=== PATIENT | female | born 1940 ===

== ENCOUNTER 2021-08-08 14:54 | Inpatient (IN) ==
[2021-08-08] MEDS ORDERED: SODIUM CHLORIDE 0.9% 500 ML IV STA (15:36)
[2021-08-08] MEDS ORDERED: AZITHROMYCIN 250 MG TABLET PO STA (16:02)
[2021-08-08] MEDS ORDERED: cefTRIAXone 1,000 MG in SODIUM CHLORIDE 0.9% 100 ML IV STA (16:02)
[2021-08-08 16:07] LABS: Basophils # 0.1 10*3/uL (0.0-0.2); Basophils % 0.3 % (0.0-0.8); Eosinophils # 0.2 10*3/uL (0.0-0.87); Eosinophils % 1.4 % (0.00-10.9); Hematocrit 42.8 VOL% (35.7-47.0); Hemoglobin 13.8 GM/DL (12.0-16.0); Immature Granulocytes % 0.5 %; Immature Granulocytes Absolute 0.09 #; Lymphocytes # 1.9 10*3/uL (1.4-4.0); Lymphocytes % 10.6 % (21.3-54.2); Mean Corpuscular HGB Conc 32.2 GM/DL (32-36); Mean Corpuscular Volume 93.4 FL (87-102); Mean Platelet Volume 11.5 FL (9.6-12.0); Monocytes % 5.1 % (1.7-12.7); Neutrophils % 82.1 % (38.7-73.9); Platelet Count 215 T/CUMM (130-400); Red Blood Count 4.58 MC/CUMM (3.8-5.5); Red Cell Distribution Width 12.5 % (9.3-17.3); White Blood Count 17.7 T/CUMM (4-12)
[2021-08-08 16:22] LABS: Alanine Aminotransferase 14 U/L (13-56); Albumin 3.6 G/DL (3.4-5.0); Alkaline Phosphatase 109 U/L (45-117); Aspartate Amino Transferase 17 U/L (0-37); Blood Urea Nitrogen 14 MG/DL (7-18); Carbon Dioxide 26 MMOL/L (21-32); Estimated Glom Filtration Rate 56 ML/MIN; Glucose 135 MG/DL (74-106); Osmolality,Calculated 277.7 MOS/KG (273-304); Potassium 2.9 MMOL/L (3.5-5.1); Sodium 138 MMOL/L (136-145); Total Protein 6.8 G/DL (6.4-8.2)
[2021-08-08] MEDS ORDERED: POTASSIUM CHLORIDE 20 MEQ TABLET PO STA (16:26)
[2021-08-08] MEDS ORDERED: SODIUM CHLORIDE 0.9% 1,850 ML IV ONE (16:38)
[2021-08-08] MEDS ORDERED: DOCUSATE SODIUM 100 MG CAPSULE PO PRN (17:04)
[2021-08-08] MEDS ORDERED: GLUCAGON 1 MG VIAL IM PRN (17:04)
[2021-08-08] MEDS ORDERED: ACETAMINOPHEN 325 MG TABLET PO PRN (17:04)
[2021-08-08] MEDS ORDERED: DEXTROSE 50% 25 GM/50 ML VIAL IV PRN (17:04)
[2021-08-08] MEDS ORDERED: ONDANSETRON 4 MG/2 ML VIAL IV PRN (17:04)
[2021-08-08 17:11] LABS: Bilirubin,Urine Negative (Negative); Blood, Urine Negative (Negative); Glucose,Urine (UA) Negative (Negative); Hyaline Casts,Urine 1 /LPF (0-3); Ketones,Urine 20 mg/dL (Negative); Mucus,Urine Occasional /LPF (Occasional); Nitrite,Urine Negative (Negative); Protein,Urine Negative; RBC,Urine <1 /HPF (0-4); Urine Appearance CLEAR (Clear); Urine Color Yellow (Yellow); Urine Specific Gravity 1.011 (1.001-1.035); Urine Urobilinogen < 2.0 EU/DL (0.2-1.0)
[2021-08-08] MEDS ORDERED: NICOTINE 7 MG/24 HR PATCH TRANSDERM PRN (17:32)
[2021-08-08] MEDS: ENOXAPARIN 40 MG/0.4 ML SYRINGE SUBCUT SCH (18:18)
[2021-08-08] MEDS: SODIUM CHLORIDE 0.9% 1,000 ML IV SCH (18:18)
[2021-08-08] MEDS ORDERED: INFLUENZA VIRUS VACCINE 0.5 ML SYRINGE IM ONE (18:22)
[2021-08-08] MEDS: ALBUTEROL/IPRATROPIUM 3 ML NEB RESP TX SCH (20:13)
[2021-08-08 20:16] LABS: Bilirubin,Total 0.7 MG/DL (0.20-1.00); Calcium 9.7 MG/DL (8.5-10.1); Osmolality,Calculated 280.3 MOS/KG (273-304); Potassium 2.7 MMOL/L (3.5-5.1); Total Protein 5.5 G/DL (6.4-8.2)
[2021-08-08] MEDS: INSULIN LISPRO 100 UNIT/ML SUBCUT SCH (23:33)
[2021-08-09] MEDS: ALBUTEROL/IPRATROPIUM 3 ML NEB RESP TX SCH ×4 (00:44→20:36)
[2021-08-09 06:40] LABS: Basophils % 0.3 % (0.0-0.8); Immature Granulocytes % 0.3 %; Immature Granulocytes Absolute 0.03 #
[2021-08-09 06:45] LABS: Eosinophils # 0.4 10*3/uL (0.0-0.87); Eosinophils % 3.4 % (0.00-10.9); Hematocrit 35.3 VOL% (35.7-47.0); Lymphocytes # 1.3 10*3/uL (1.4-4.0); Lymphocytes % 12.6 % (21.3-54.2); Mean Corpuscular HGB Conc 32.6 GM/DL (32-36); Mean Corpuscular Volume 93.1 FL (87-102); Mean Platelet Volume 11.8 FL (9.6-12.0); Monocytes % 8.3 % (1.7-12.7); Neutrophils % 75.1 % (38.7-73.9); Platelet Count 179 T/CUMM (130-400); Red Blood Count 3.79 MC/CUMM (3.8-5.5); Red Cell Distribution Width 12.8 % (9.3-17.3)
[2021-08-09 06:48] LABS: Calcium 9.9 MG/DL (8.5-10.1); Hemoglobin 11.5 GM/DL (12.0-16.0); Osmolality,Calculated 281.1 MOS/KG (273-304); Potassium 2.9 MMOL/L (3.5-5.1); White Blood Count 10.2 T/CUMM (4-12)
[2021-08-09 06:59] LABS: Risk Ratio 1.68; Thyroid Stimulating Hormone 0.47 uIU/ml (0.358-3.74); VLDL Cholesterol 13.4 MG/DL
[2021-08-09] MEDS: SODIUM CHLORIDE 0.9% 1,000 ML IV SCH ×2 (07:26→08:51)
[2021-08-09] MEDS: INSULIN LISPRO 100 UNIT/ML SUBCUT SCH ×4 (08:27→20:13)
[2021-08-09] MEDS: PANTOPRAZOLE 40 MG TABLET PO SCH (08:48)
[2021-08-09] MEDS: POTASSIUM CHLORIDE 20 MEQ TABLET PO PRN ×4 (08:48→14:48)
[2021-08-09] MEDS: AZITHROMYCIN INJ 500 MG in SODIUM CHLORIDE 0.9% 250 ML IV SCH (08:50)
[2021-08-09] MEDS ORDERED: MAGNESIUM SULF RIDER 2 GM/50 ML PREMIX IV ONE (11:00)
[2021-08-09] MEDS ORDERED: cefTRIAXone 1,000 MG in SODIUM CHLORIDE 0.9% 100 ML IV SCH (17:00)
[2021-08-09] MEDS: ENOXAPARIN 40 MG/0.4 ML SYRINGE SUBCUT SCH (20:13)
[2021-08-10] MEDS: ALBUTEROL/IPRATROPIUM 3 ML NEB RESP TX SCH ×3 (00:47→13:19)
[2021-08-10 09:01] LABS: Basophils # 0.1 10*3/uL (0.0-0.2); Basophils % 0.9 % (0.0-0.8); Eosinophils # 0.5 10*3/uL (0.0-0.87); Eosinophils % 8.9 % (0.00-10.9); Hemoglobin 11.3 GM/DL (12.0-16.0); Immature Granulocytes % 0.4 %; Immature Granulocytes Absolute 0.02 #; Lymphocytes # 1.5 10*3/uL (1.4-4.0); Lymphocytes % 26.5 % (21.3-54.2); Mean Corpuscular HGB Conc 33.2 GM/DL (32-36); Mean Corpuscular Volume 93.2 FL (87-102); Mean Platelet Volume 11.6 FL (9.6-12.0); Monocytes % 11.7 % (1.7-12.7); Neutrophils % 51.6 % (38.7-73.9); Platelet Count 179 T/CUMM (130-400); Red Blood Count 3.65 MC/CUMM (3.8-5.5); Red Cell Distribution Width 12.9 % (9.3-17.3); White Blood Count 5.6 T/CUMM (4-12)
[2021-08-10 09:32] LABS: Calcium 9.9 MG/DL (8.5-10.1); Osmolality,Calculated 285.7 MOS/KG (273-304)
[2021-08-10 09:47] LABS: Potassium 3.3 MMOL/L (3.5-5.1)
[2021-08-10] MEDS ORDERED: AZITHROMYCIN 250 MG TABLET PO ONE (10:13)
[2021-08-10] MEDS: INSULIN LISPRO 100 UNIT/ML SUBCUT SCH ×2 (10:17→11:47)
[2021-08-10] MEDS: AZITHROMYCIN INJ 500 MG in SODIUM CHLORIDE 0.9% 250 ML IV SCH (10:17)
[2021-08-10] MEDS: PANTOPRAZOLE 40 MG TABLET PO SCH (10:21)
[2021-08-10] MEDS ORDERED: POTASSIUM CHLORIDE 20 MEQ TABLET PO ONE ×2 (11:04→13:04)
[2021-08-10 12:45] VITALS: BP 137/55
== END 2021-08-10 15:06 | disposition home health service (06) | DRG 871 ==
LOC: N.ED 14:54 → N.EDINP 17:04 → SUATTDRO 17:04 → N.5E 17:29
PROVIDERS: ADMIT Internal Medicine; ATTEND Internal Medicine